=== PATIENT | female | born 1950 | race Caucasian/White ===

== ENCOUNTER → 2016-06-29 | Day surgery (SDC) | payer OTHER ==
[~2016-06-29] MED LIST: BUPIVACAINE HCL PF 0.75% 30 ML VIAL ONE; LACTATED RINGER'S 1000 ML INJ 1,000 ML ONE; LIDOCAINE 1.5%/EPINEPHrine 1:200,000 PF SOLN 30 ML AMP ONE; MIDAZOLAM HCL 5 MG/ML VIAL (1 ML) ONE; ONDANSETRON HCL 4 MG/2 ML VIAL IV PUSH ONE; PROPOFOL 200 MG/20 ML AMP IV ONE; SODIUM CHLORIDE 0.9% INJ 10 ML ONE; ceFAZolin INJ 1,000 MG VIAL ONE
--- NOTE | 2016-06-29 10:48 | TN ---
cc: STEPHEN MARADIAGA M.D. DATE OF SURGERY 06/29/2016 PREOPERATIVE DIAGNOSIS Left ankle insertional Achilles tendonitis, partial Achilles tendon tear, Jeovanny's deformity, calcaneal spur, retrocalcaneal bursitis. POSTOPERATIVE DIAGNOSIS Left ankle insertional Achilles tendonitis, partial Achilles tendon tear, Jeovanny's deformity, calcaneal spur, retrocalcaneal bursitis. PROCEDURE Left ankle calcaneus osteectomy, excision of retrocalcaneal bursa, secondary repair Achilles tendon. 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 PROCEDURE The patient brought into the operating room and had satisfactory general endotracheal anesthesia by the Department of Anesthesia. The left lower extremity was prepped and draped in the usual sterile manner. The extremity was exsanguinated by Davian wrap. Tourniquet was inflated to 250 mmHg. The patient was placed in a prone position with all pressure points well-padded. A posterior incision to the calcaneus and Achilles tendon was made. The tendinous portion of the Achilles tendon was sharply dissected off of the calcaneal bone spur and the posterior calcaneus and the Jeovanny's deformity. The retrocalcaneal bursa was surgically excised. With an osteotome and oscillating saw and with fluoroscopy, osteectomy was performed with removal of the posterior calcaneal spur and the Jeovanny's deformity. A suture anchor was then used. On fluoroscopic guidance, a punch was then placed into the calcaneus. This hole was then tapped and then the bone screw was then inserted into the calcaneus. The Achilles tendon was then repaired with the multiple FiberWire sutures and secured down to the bone. The subcutaneous tissues were closed in multiple layers. This was with a 2-0 Vicryl suture. Skin was approximated with multiple interrupted 2-0 nylon. The tourniquet was deflated. Sterile dressings were applied. The patient tolerated the procedure well and arrived in the recovery room in stable and satisfactory condition. MD LUCERO Chavez/TRACE /10:08 AM /10:34 AM
== END | disposition home or self-care (01) ==
LOC: ESDC 07:08
PROVIDERS: ATTEND Orthopaedic Surgery Orthopaedic Surgery of the Spine
DX: M76.62 Achilles tendinitis, left leg (principal); S86.012A Strain of left Achilles tendon, initial encounter; M77.32 Calcaneal spur, left foot
CPT/HCPCS: 01472; 01480; 27654; 28118; 64445; 76000; C1713; J0690; J2250; J2405; J3010; J7120